=== PATIENT | female | born 1990 | race Hispanic/Latino ===

== ENCOUNTER 2017-12-18 11:45 | Inpatient (IN) | payer OTHER ==
[~2017-12-18] VITALS: Ht 165.1 cm; Wt 89.0 kg
[~2017-12-18 11:45] MED LIST: NAPROSYN500 MG PO; PEPCID20 MG PO
--- NOTE | 2017-12-19 09:08 | PR ---
[facility] [address] [facility] [place], [place] [address] Signed PP Progress Notes Datetime Report Generated by CPN: 12/19/2017 09:08 SUBJECTIVE: [id number] Pain: Within normal limits Nausea/Vomiting: Denies Vital Signs: [id number] Vital Signs: Reviewed; Within Normal Limits EXAM: [id number] Cardiovascular: Not Done Respiratory: Not Done Abdomen/Uterus: Abnormal Lochia: Normal Vulva/Perineum: Not Done Breasts: Not Done CVA Tenderness: Not Done Extremities: Normal Incision: Not Applicable Progress: Normal Exam Comments: Fundus firm, NT @ U H/H 10.9/11.1, WBC 11.1, plat 199k IMPRESSION/PLAN/PROCEDURES: [id number] Impression: Normal progression Plan: Discharge Procedures: None Progress Notes: Doing well. She desires D/C. Signing Physician: Meera Powell MD Copies: ~ *Electronically Signed* 12/19/17907 MEERA POWELL MD PATIENT NAME: JESSENIA FOWLER PROGRESS NOTE DATE OF : 88 PHYSICIAN: MEERA POWELL MD RPT #: [id number] REPORT IS CONFIDENTIAL AND NOT TO BE RELEASED WITHOUT AUTHORIZATION
== END 2017-12-19 13:41 | disposition home or self-care (01) | DRG 807 ==
LOC: FBCO 11:45 → FBC 12:00
PROVIDERS: ADMIT Obstetrics & Gynecology
PROC: 10E0XZZ Delivery of Products of Conception, External Approach (ICD-10-PCS; principal; 2017-12-18)
PROC: 10907ZC Drainage of Amniotic Fluid, Therapeutic from Products of Conception, Via Natural or Artificial Opening (ICD-10-PCS; 2017-12-18)
PROC: 0UQMXZZ Repair Vulva, External Approach (ICD-10-PCS; 2017-12-18)
DX: O77.0 Labor and delivery complicated by meconium in amniotic fluid (principal); Z37.0 Single live birth; O76 Abnormality in fetal heart rate and rhythm complicating labor and delivery; O71.82 Other specified trauma to perineum and vulva; Z3A.40 40 weeks gestation of pregnancy
CPT/HCPCS: 36415; 85027; J2590

== ENCOUNTER 2022-02-27 17:21 | Emergency (ER) | payer OTHER ==
[~2022-02-27] VITALS: Ht 165.1 cm; Wt 70.3 kg
== END 2022-02-27 23:51 | disposition home or self-care (01) ==
LOC: ED 17:21
DX: R10.31 Right lower quadrant pain (principal)
CPT/HCPCS: 36415; 74177; 80053; 81001; 83690; 84703; 85025; 99284-25; J2270; J7030; Q9967

== ENCOUNTER 2024-03-19 23:31 | Inpatient (IN) | payer OTHER ==
[~2024-03-19] VITALS: Ht 162.6 cm; Wt 86.6 kg
[~2024-03-19 23:31] MED LIST changes: +CEFDINIR300 MG PO; +MAGNESIUM400 M1 PO; +NITROFURANTOIN100 M1 PO; +ONDANSETRON ODT4 MG PO
[2024-03-20] MEDS ORDERED: LIDOCAINE 2% VISCOUS 6 ML SYR TOP ONE ×3 (01:15→22:00)
[2024-03-20] MEDS ORDERED: CALCIUM CARBONATE 500 MG CHEW PO PRN ×2 (01:15→22:00)
[2024-03-20] MEDS ORDERED: MAGNESIUM HYDROXIDE/AL HYDROX 30 ML CUP PO PRN ×2 (01:15→22:00)
[2024-03-20] MEDS ORDERED: LACTATED RINGER'S 1,000 ML IV PRN (01:15)
[2024-03-20] MEDS ORDERED: OXYTOCIN/DEXTROSE 5% 20 UNITS/100 ML BAG IV SCH (01:15)
[2024-03-20 01:19] LABS: HEMATOCRIT 34.1 % (35.0-50.0); MCH 33.6 (27-36); MCHC 35.1 g/dl (30-36); MCV 95.7 fl (81-99); RBC 3.56 M/ul (4.3-5.7); RDW 13.4 (10.5-15.0)
[2024-03-20 01:32] LABS: AMPHETAMINES, URINE NEGATIVE (NEGATIVE); BARBITURATES, URINE NEGATIVE (NEGATIVE); BENZODIAZEPINE, URINE NEGATIVE (NEGATIVE); BUPRENORPHINE, URINE NEGATIVE (NEGATIVE); CANNABINOID, URINE NEGATIVE (NEGATIVE); COCAINE, URINE NEGATIVE (NEGATIVE); ECSTASY, URINE NEGATIVE (NEGATIVE); FENTANYL, URINE NEGATIVE (NEGATIVE); METHADONE, URINE NEGATIVE (NEGATIVE); OPIATES, URINE NEGATIVE (NEGATIVE); OXYCODONE, URINE NEGATIVE (NEGATIVE); PHENCYCLIDINE, URINE NEGATIVE (NEGATIVE)
[2024-03-20 01:54] LABS: ABO O; RH POSITIVE
[2024-03-20 01:55] LABS: ANTIBODY SCREEN NEGATIVE
[2024-03-20] MEDS ORDERED: OXYTOCIN/0.9 % SODIUM CHLORIDE 500 ML IV SCH ×2 (10:45→22:00)
[2024-03-20] MEDS ORDERED: LIDOCAINE HCL 2% 5 ML SDV ONE (15:23)
[2024-03-20] MEDS ORDERED: ROPIVACAINE 0.2% 200 ML BAG ONE (15:23)
[2024-03-20] MEDS ORDERED: BUPIVACAINE HCL 0.25% 10 ML SDV INJ ONE (15:23)
[2024-03-20] MEDS ORDERED: dexmedeTOMIDine HCl 200 MCG/2 ML VIAL ONE (15:23)
[2024-03-20] MEDS ORDERED: LACTATED RINGER'S 2,000 ML IV ONE (16:00)
[2024-03-20] MEDS ORDERED: LACTATED RINGER'S 500 ML IV PRN (16:00)
[2024-03-20] MEDS ORDERED: ePHEDrine sulfate 5 MG/ML SYRINGE IV PRN (16:00)
[2024-03-20] MEDS ORDERED: ROPIVACAINE 0.2% 200 ML BAG EPIDURAL SCH ×2 (16:00)
[2024-03-20] MEDS ORDERED: ePHEDrine KIT FOR FBC IV ONE (17:44)
[2024-03-20] MEDS ORDERED: ACETAMINOPHEN 325 MG TAB PO PRN (22:00)
[2024-03-20] MEDS ORDERED: WITCH HAZEL/GLYCERIN 1 EA PAD TOP PRN (22:00)
[2024-03-20] MEDS ORDERED: IBUPROFEN 600 MG TAB PO PRN (22:00)
[2024-03-20] MEDS ORDERED: HYDROCORTISONE ACETATE 25 MG SUPP PR PRN (22:00)
[2024-03-20] MEDS ORDERED: BENZOCAINE 60 ML AEROSOL TOP PRN (22:00)
[2024-03-20] MEDS ORDERED: MAGNESIUM HYDROXIDE 30 ML UDC PO PRN (22:00)
--- NOTE | 2024-03-21 08:57 | PR ---
[facility] [address] [facility] [place] [address] Signed PP Progress Notes Datetime Report Generated by CPN: 03/21/2024 08:57 SUBJECTIVE: [id number] Pain: Within Normal Limits Nausea/Vomiting: Denies Flatus: Yes Vital Signs: [id number] Vital Signs: Reviewed; Within Normal Limits Cardiovascular: Normal Respiratory: Normal Abdomen/Uterus: Normal Lochia: Normal Vulva/Perineum: Normal Breasts: Not Done CVA Tenderness: Not Done Extremities: Normal IMPRESSION/PLAN/PROCEDURES: [id number] Impression: Normal Progression Plan: Continue Present Management Progress Notes: No concerns this am. Anticipate D/C in tomorrow. Signing Physician: Barbie Cramer MD Copies: ~ *Electronically Signed* 03/21/24 0857 BARBIE CRAMER MD PATIENT NAME: JESSENIA FOWLER PROGRESS NOTE DATE OF : 88 PHYSICIAN: BARBIE CRAMER MD RPT #: [id number] REPORT IS CONFIDENTIAL AND NOT TO BE RELEASED WITHOUT AUTHORIZATION
[2024-03-21] MEDS ORDERED: SENNOSIDES/DOCUSATE 1 EA TAB PO SCH (09:00)
[2024-03-21] MEDS ORDERED: SUMAtriptan succinate 25 MG TAB PO ONE (15:30)
[2024-03-21] MEDS ORDERED: SUMAtriptan succinate 50 MG TAB PO ONE (16:00)
--- NOTE | 2024-03-22 10:22 | PR ---
[facility] [address] [facility] [place], [place] [address] Signed PP Progress Notes Datetime Report Generated by CPN: 03/22/2024 10:22 SUBJECTIVE: [id number] Pain: Within Normal Limits Nausea/Vomiting: Denies Flatus: Yes Vital Signs: [id number] Vital Signs: Reviewed; Within Normal Limits Cardiovascular: Normal Respiratory: Normal Abdomen/Uterus: Normal Lochia: Normal Vulva/Perineum: Not Done Breasts: Not Done CVA Tenderness: Normal Extremities: Normal Incision: Not Applicable Progress: Normal IMPRESSION/PLAN/PROCEDURES: [id number] Impression: Normal Progression Plan: Continue Present Management; Discharge Procedures: None Progress Notes: No concerns today. Desires discharge. Normal lochia, pain WNL. Signing Physician: Barbie Cramer MD Copies: ~ *Electronically Signed* 03/22/24 1022 BARBIE CRAMER MD PATIENT NAME: JESSENIA FOWLER PROGRESS NOTE DATE OF : 88 PHYSICIAN: BARBIE CRAMER MD RPT #: [id number] REPORT IS CONFIDENTIAL AND NOT TO BE RELEASED WITHOUT AUTHORIZATION
== END 2024-03-22 12:45 | disposition home or self-care (01) | DRG 807 ==
LOC: FBCO 23:31 → FBC 03-20 00:01
PROVIDERS: ADMIT Obstetrics & Gynecology; ATTEND Obstetrics & Gynecology
PROC: 10E0XZZ Delivery of Products of Conception, External Approach (ICD-10-PCS; principal; 2024-03-20)
PROC: 00HU33Z Insertion of Infusion Device into Spinal Canal, Percutaneous Approach (ICD-10-PCS; 2024-03-20)
PROC: 3E0R3BZ Introduction of Anesthetic Agent into Spinal Canal, Percutaneous Approach (ICD-10-PCS; 2024-03-20)
DX: O42.02 Full-term premature rupture of membranes, onset of labor within 24 hours of rupture (principal); Z37.0 Single live birth; Z3A.38 38 weeks gestation of pregnancy; O69.2XX0 Labor and delivery complicated by other cord entanglement, with compression, not applicable or unspecified; O76 Abnormality in fetal heart rate and rhythm complicating labor and delivery
CPT/HCPCS: 01960; 36415; 80307; 85027; 86850; 86900; 86901; A9270; J2003; J2795; J7121